=== PATIENT | female | born 1990 | race Caucasian/White ===

== ENCOUNTER 2017-12-05 22:42 | Inpatient (IN) ==
[2017-12-05] MEDS ORDERED: *HR* OxyCODONE/APAP 10/325 TABLET PO ONE (23:29)
[2017-12-05] MEDS ORDERED: diazePAM 10 MG TABLET PO ONE (23:29)
--- NOTE | 2017-12-05 23:30 | Emergency Department Note ---
Disposition Clinical Impression: Abscess of skin or subcutaneous tissue Qualifiers: Site of cutaneous abscess: trunk Site of cutaneous abscess of trunk: back Qualified Code(s): L02.212 - Cutaneous abscess of back [any part, except buttock ] Cellulitis Qualifiers: Site of cellulitis: trunk Site of cellulitis of trunk: back Qualified Code(s): L03.312 - Cellulitis of back [any part except buttock] Disposition: Admitted As Inpatient Condition: Good Time of Disposition: 04:52 General Adult HPI - General Chief complaint: ED Skin/Abscess/Foreign Body Stated complaint: Fever, "Huge knot on my back, hurts like hell" Time Seen by Provider: 12/05/17 23:10 Source: patient, family Limitations: no limitations Nursing Notes Reviewed: Yes Vital Signs Reviewed: Yes - History of Present Illness HPI Narrative: 5 day history of abscess to the upper back. Does have a history of abscesses. States that it was draining a purulent discharge earlier. He does complain of pain to the area. Denies any trauma to this area. Pain Scale: 6 - Related Data Previous Rx's Medication Instructions Recorded Amoxicillin 875 mg PO BID #20 tablet 11/01/17 Ibuprofen [Motrin] 600 mg PO Q6HR PRN #20 tab 11/01/17 Michele/Poly/HC *EAR* SOLN 4 drop RIGHT EAR QID #1 solution 11/01/17 [Cortisporin *EAR* SOLN] Allergies Allergy/AdvReac Type Severity Reaction Status Date / Time No Known Allergies Allergy Verified 11/01/17 15:45 All systems ED: reviewed and negative except as stated. Constitutional: Reports: chills. Denies: fever ENT ED: Denies: congestion Cardiovascular: Denies: chest pain Respiratory: Denies: cough, dyspnea Gastrointestinal: Denies: abdominal pain, nausea, vomiting, diarrhea Integumentary: Reports: lesions (Large abscess to upper back). 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 - Social History Smoking Status: Current every day smoker Smokeless Tobacco Status: No Alcohol use: Reports: none Drug use: Reports: none Physical Exam - General Limitations: no limitations General appearance: alert, in no apparent distress - Head Head exam: atraumatic, normocephalic, normal inspection - Eye Eye exam: Present: normal appearance, PERRL, EOMI - ENT ENT exam: normal exam, normal oropharynx, mucous membranes moist - Neck Neck exam: Present: normal inspection, full ROM, trachea midline - Chest Chest inspection: Present: normal inspection, symmetric chest wall rise - Extremities Exam Extremities exam: Present: normal inspection, full ROM. Absent: tenderness, pedal edema - Back Exam Back exam: Present: other (Large abscess to upper back to the left.) - Neurological Exam Neurological exam: Present: alert, oriented X3 - Psychiatric Psychiatric exam: Present: normal affect, normal mood - Skin Skin exam: Present: warm, dry, intact, normal color. Absent: rash, cyanosis Course Course Narrative: Well-appearing female patient presenting to the emergency department currently complaining of a large knot to her neck area. She has a erythematous raised region to the posterior aspect of her back. She states that she noticed this on Sunday. She does have a history of abscesses. States she has been admitted here and was septic for an abscess on her face previously. She is tachycardic on arrival. The area does appear to be cellulitic around the abscess. Patient is not febrile. She denies any shortness of breath or chest pain. We will get a basic lab workup on patient and I&D this area. She does meet SIRS criteria. We have provided her with 2 L of fluid. Her heart rate was still in the 120s after her second liter. We did place her on Vanco and Zosyn for her skin infection. - Reevaluation(s) Reevaluation #1: The area was I&D'd. She tolerated this well. A large amount of purulent discharge was found and drained. Ultrasound at bedside was done after the abscess was drained and show no fluid pockets. We will start her on begin Zosyn at this time. We will admit patient to the hospital for SIRS criteria as well as a skin infection. The patient is requesting to be admitted as well as she had a by experience with being discharged last time and having to come back being septic. CT of patient's back to the abscess area showed no extra fluid pockets. There is no tracking of the abscess. Time: 01:22 - Consultations Consultation #1: Dr Hernandez accepted Pt in stable condition. Time: 02:31 Vital Signs Temperature 98.0 F 12/05/17 22:45 Pulse Rate 135 12/05/17 22:45 Respiratory Rate 18 12/05/17 22:45 Blood Pressure 142/103 12/05/17 22:45 O2 Sat by Pulse Oximetry 98 12/05/17 22:45 Temperature 99 F 12/06/17 02:38 Pulse Rate 111 12/06/17 02:38 Respiratory Rate 12 12/06/17 02:38 Blood Pressure 121/84 12/06/17 02:38 O2 Sat by Pulse Oximetry 99 12/06/17 02:38 Oxygen Delivery Oxygen Delivery Room Air Medical Decision Making - Medical Records Medical records reviewed: Yes I reviewed the patient's medical records. - Lab Data Lab results reviewed: Yes I reviewed the patient's lab results. Result diagrams: 12/06/17 00:12 12/06/17 00:12 Lab Results 12/05/17 12/06/17 12/06/17 Range/Units 23:44 00:12 00:12 WBC 16.5 H (4.3-11.1) K/mcL RBC 4.94 (3.82-4.97) M/mcL Hgb 14.8 (11.5-15.4) g/dL Hct 43.2 (35.3-44.9) % MCV 87.4 (83.0-100.0) fL MCH 30.0 (28.0-33.3) pg MCHC 34.3 (31.6-35.5) g/dL RDW 13.0 (11.5-14.5) % Plt Count 344 (140-400) K/mcL MPV 9.1 L (9.4-12.4) fL Immature Gran % 0.3 (0-4) % Seg Neutrophils % 76.0 % Lymphocytes % 17.2 % Monocytes % 5.5 % Eosinophils % 0.8 % Basophils % 0.2 % Neutrophils # 12.5 H (1.6-8.9) K/mcL Lymphocytes # 2.8 (0.6-4.6) K/mcL Monocytes # 0.9 (0.0-1.3) K/mcL Eosinophils # 0.1 (0.0-0.6) K/mcL Basophils # 0.0 (0.0-0.2) K/mcL Sodium 134 L (136-145) mEq/L Potassium 3.7 (3.5-5.1) mEq/L Chloride 100 (98-107) mEq/L Carbon Dioxide 22 L (23-29) mEq/L BUN 8 (6-20) mg/dL Creatinine 0.54 L (0.60-1.20) mg/dL Est GFR ( Amer) > 60 (> 60) Est GFR (Non-Af Amer) > 60 (> 60) BUN/Creatinine Ratio 15 (6-26) Glucose 238 H (70-105) mg/dL POC Glucose 240 H (70-99) mg/dL Calculated Osmolality 284 (280-300) Calcium 10.4 H (8.6-10.3) mg/dL Total Bilirubin 0.9 (0.3-1.0) mg/dL AST 22 (13-39) Units/L ALT 21 (7-52) Units/L Alkaline Phosphatase 58 (34-104) Units/L Serum Total Protein 8.0 (6.4-8.9) g/dL Albumin 4.5 (3.5-5.7) g/dL Globulin 3.5 (2.4-3.5) g/dL Albumin/Globulin Ratio 1.3 (1.1-2.2) - Radiology Data Radiology results reviewed: Yes I reviewed the patient's radiology results. Chest CT 12/06/17 01:21 IMPRESSION: There is a localized inflammatory process involving the subcutaneous fat at the posterior base of the left neck consistent with cellulitis and developing phlegmon. There is no drainable fluid collection/ abscess at this time. There is a small overlying skin defect suggesting prior drainage or attempted drainage. D/ / Shon Colindres MD / Shon Colindres MD Interpreting Provider: Shon Colindres MD Attestation Statement - Attestation Attestation: I examined this patient and my medical decision-making was reviewed with the Resident Physician. I agree with the documented findings, disposition and treatment plan as described except to the extent set forth below. Patient has history of diabetes, previously uncontrolled skin infections now with significant posterior thoracic abscess which was drained at bedside with subsequent wound cultures and blood cultures sent. Patient does meet SIRS criteria with leukocytosis as well as tachycardia. Her tachycardia was responsive to IV fluids. Given her elevated blood glucose concurrently with concern for infection as well as identification of sores being abscess in her back I would proceed with admission with broad-spectrum antibiotic coverage pending culture declaration as well as improvement of clinical signs.
[2017-12-05] MEDS: 0.9 % Sodium Chloride 1,000 ML IVC SCH (23:42)
[2017-12-06] MEDS ORDERED: Lidocaine/EPI 1:100k 1% 20 ML VIAL INFILT ONE (00:03)
[2017-12-06 00:21] LABS: Basophils % 0.2 %; Eosinophils # 0.1 K/mcL (0.0-0.6); Eosinophils % 0.8 %; Hematocrit 43.2 % (35.3-44.9); Hemoglobin 14.8 g/dL (11.5-15.4); Immature Granulocytes % 0.3 % (0-4); Lymphocytes # 2.8 K/mcL (0.6-4.6); Lymphocytes % 17.2 %; Mean Corpuscular HGB Conc 34.3 g/dL (31.6-35.5); Mean Corpuscular Volume 87.4 fL (83.0-100.0); Mean Platelet Volume 9.1 fL (9.4-12.4); Monocytes # 0.9 K/mcL (0.0-1.3); Monocytes % 5.5 %; Neutrophils # 12.5 K/mcL (1.6-8.9); Platelet Count 344 K/mcL (140-400); Red Blood Count 4.94 M/mcL (3.82-4.97)
[2017-12-06 00:44] LABS: Alanine Aminotransferase 21 Units/L (7-52); Albumin 4.5 g/dL (3.5-5.7); Albumin/Globulin Ratio 1.3 (1.1-2.2); Alkaline Phosphatase 58 Units/L (34-104); Aspartate Amino Transferase 22 Units/L (13-39); BUN/Creatinine Ratio 15 (6-26); Bilirubin,Total 0.9 mg/dL (0.3-1.0); Blood Urea Nitrogen 8 mg/dL (6-20); Calcium 10.4 mg/dL (8.6-10.3); Carbon Dioxide 22 mEq/L (23-29); Chloride 100 mEq/L (98-107); Globulin 3.5 g/dL (2.4-3.5); Glucose 238 mg/dL (70-105); Osmolality,Calculated 284 (280-300); Potassium 3.7 mEq/L (3.5-5.1); Sodium 134 mEq/L (136-145); eGFR For African Americans > 60 (> 60); eGFR For Non-African Americans > 60 (> 60)
[2017-12-06] MEDS ORDERED: Isovue-370 500 ML INFUS..BTL IV ONE (01:21)
[2017-12-06] MEDS ORDERED: Piperacillin/Tazobactam 3.375 GM in 0.9 % Sodium Chloride Mini Bag 100 ML IVPB ONE (02:17)
[2017-12-06] MEDS: 0.9 % Sodium Chloride 1,000 ML IVC SCH ×4 (02:28→17:57)
[2017-12-06] MEDS ORDERED: *HR* OxyCODONE Immed Rel 5 MG TABLET PO PRN (03:57)
[2017-12-06] MEDS ORDERED: Naloxone 0.4 MG/ML INJ IVP PRN (03:57)
[2017-12-06] MEDS ORDERED: Acetaminophen 325 MG TABLET PO PRN (03:57)
[2017-12-06] MEDS ORDERED: Ringers Solution, Lactated 1,000 ML IVC SCH (04:00)
[2017-12-06] MEDS ORDERED: *HR* Dextrose 50 % in Water (Syg) 50 ML SYRINGE IVP PRN (04:00)
[2017-12-06] MEDS ORDERED: D5% in Water 1,000 ML IVC PRN (04:00)
[2017-12-06] MEDS ORDERED: Dextrose Gel 15 GM/37.5 ML TUBE PO PRN ×2 (04:00)
[2017-12-06] MEDS ORDERED: Vancomycin 1,750 MG in 0.9 % Sodium Chloride 250 ML IVPB SCH (04:00)
--- NOTE | 2017-12-06 04:03 | Internal Med History&Physical ---
Date of Encounter: 12/06/17 Time of Encounter: 04:03 Internal Medicine - H&P: HPI Chief complaint: Fever, painful lump on back of neck Admitted From: Emergency Dept Plans for Post Hospital Care: Home History of present illness: Ms. Flynn is a 27 year old female with h/o- DM, who presents with c/o- painful swelling on the back of her neck. SHe reports being in her usual state of health until about 5 days ago, when she noticed a small pimple on the back of her neck, which gradually increased in size to golf ball and soft ball size, associated with severe throbbing pain, subjective fevers and chills. She denies nausea, vomiting, abdominal pain, diarrhea, dyspnea. She report prior h/o- abscess and skin infections and MRSA sepsis and bacteremia. Past Med Surg Social Fam HX - Past Medical History Source: patient Medical history: diabetes Psychiatric history: anxiety - Past Surgical History Surgical History: , other (adenoidectomy/tonsillectomy) - Social History Smoking Status: Current every day smoker Packs per day: 0.5 Smokeless Tobacco Status: No Alcohol use: none Drug use: none Occupational status: unemployed Current living situation: Home, With Family Activity Level: Independent ambulation Recent Out of Country Travel Within the Last 8 Weeks: No Exposure or Possible Exposure to Illness During Travel: No - Family History Father Living Status: Still Living Hx Family Cancer: Yes Hx Family Endocrine Disorder: Yes (diabetes) Internal Medicine - H&P: Meds Amoxicillin 875 mg PO BID #20 tablet 11/01/17 [Rx] Ibuprofen [Motrin] 600 mg PO Q6HR PRN #20 tab 11/01/17 [Rx] Michele/Poly/HC *EAR* SOLN [Cortisporin *EAR* SOLN] 4 drop RIGHT EAR QID #1 solution 11/01/17 [Rx] 3 Allergy/AdvReac Type Severity Reaction Status Date / Time No Known Allergies Allergy Verified 11/01/17 15:45 All Systems PM: A 10-system review of systems was performed and is negative for pertinent findings except as documented above in the HPI. - Constitutional Constitutional: chills, fever(s) - EENT Eyes: no change in vision, no discharge, no pain, no photophobia Ears: no ear discharge, no ear pain, no tinnitus Nose, mouth and throat: no dysphagia, no nasal discharge, no neck pain, no sore throat - Cardiovascular Cardiovascular ROS IM: no chest pain, no diaphoresis, no dyspnea, no lightheadedness, no palpitations, no syncope - Respiratory Respiratory: no cough, no dyspnea, no wheezing, no excessive phlegm production - Gastrointestinal Gastrointestinal: no abdominal pain, no diarrhea, no hematemesis, no hematochezia, no melena, no nausea, no vomiting - Genitourinary Genitourinary: no change in urinary stream, no dysuria, no flank pain, no hematuria - Musculoskeletal Musculoskeletal ROS IM: no numbness, no tingling - Integumentary Integumentary IM: as per HPI, erythema, new lesions - Neurological Neurological ROS: no confusion, no convulsions, no focal weakness, no numbness, no tingling, no tremor(s) - Hematologic/Lymphatic Hematologic/Lymphatic: no easy bruising - Constitutional Vitals: Temp Pulse Resp BP Pulse Ox 99 F 111 12 121/84 99 12/06/17 02:38 12/06/17 02:38 12/06/17 02:38 12/06/17 02:38 12/06/17 02:38 General appearance: Present: A&O X 3, morbidly obese, answers questions appropriately - Neck Neck exam general surgery: Present: supple, trachea midline. Absent: lymphadenopathy Additional comments: left posterior neck s/p I&D, with dry dressing intact - Respiratory Respiratory exam: Present: CTAB. Absent: accessory muscle use, rales, rhonchi, wheezes - Cardiovascular Cardiovascular exam: Present: RRR, +S1, +S2, tachycardia. Absent: diastolic murmur, gallop, rubs, systolic murmur - GI/Abdominal GI/Abdominal exam: Present: normal bowel sounds, soft (obese), no peritoneal signs. Absent: distended, tenderness - Extremities Exam Extremities exam: Present: full ROM, warm, radial pulses palpable and symmetrical. Absent: calf tenderness, cyanotic, pedal edema - Neurological Exam Neurological exam: Present: CN II-XII intact, oriented X3, no focal deficits. Absent: pronater drift, facial droop, speech deficit - Skin Skin exam: Present: dry, intact Internal Med - H&P Results - Labs CBC & Chem 7: 12/06/17 00:12 12/06/17 00:12 - Assessment and plan (1) Abscess Current Visit: Yes Status: Acute Assessment and plan: CT chest shows phlegmon in left posterior subcutaneous tissues of neck; underwent incision and drainage in the ER, cultures were not sent. Continue IV Vancomycin and Zosyn and f/up blood cultures; local wound care with daily dressing changes and iodoform packing; she may need HHS at discharge; to be discharged on MRSA oral agents due to h/o- MRSA bacteremia in the past. Pain control with PRN Oxycodone and Tramadol. (2) Diabetes mellitus Current Visit: Yes Status: Chronic Assessment and plan: patient stopped taking Metformin for several months, states she is going to get back with her PCP; blood sugars noted to be elevated; check HbA1C. Start Accucheck blood glucose monitoring with sliding scale insulin; diabetic diet; Qualifiers: Diabetes mellitus type: type 2 Diabetes mellitus half-way insulin use: without half-way use Diabetes mellitus complication status: with hyperglycemia Qualified Code(s): E11.65 - Type 2 diabetes mellitus with hyperglycemia (3) Morbid obesity with BMI of 40.0-44.9, adult Current Visit: Yes Status: Chronic (4) Sepsis Current Visit: Yes Status: Acute Assessment and plan: patient presented with leukocytosis and tachycardia, with cellulitis and abscess ; continue antibiotics and monitor vitals closely. Lactic acid normal. Telemetry monitoring. Qualifiers: Sepsis type: sepsis due to unspecified organism Qualified Code(s): A41.9 - Sepsis, unspecified organism (5) Tobacco abuse Current Visit: Yes Status: Chronic Assessment and plan: declines Nicotine patch. - Time Spent With Patient Total time spent is greater than 50% in coordination of care (as documented) at patient's floor/unit and/or counseling patient:
[2017-12-06] MEDS: *HR* Enoxaparin 40 MG/0.4 ML SYRINGE SQ SCH (05:37)
[2017-12-06 06:45] LABS: BUN/Creatinine Ratio 16 (6-26); Blood Urea Nitrogen 7 mg/dL (6-20); Calcium 9.1 mg/dL (8.6-10.3); Carbon Dioxide 18 mEq/L (23-29); Chloride 107 mEq/L (98-107); Glucose 184 mg/dL (70-105); Osmolality,Calculated 293 (280-300); Sodium 140 mEq/L (136-145); eGFR For African Americans > 60 (> 60); eGFR For Non-African Americans > 60 (> 60)
[2017-12-06 07:01] LABS: Basophils # 0.1 K/mcL (0.0-0.2); Basophils % 0.3 %; Eosinophils # 0.2 K/mcL (0.0-0.6); Eosinophils % 0.9 %; Hematocrit 37.2 % (35.3-44.9); Hemoglobin 12.7 g/dL (11.5-15.4); Immature Granulocytes % 0.3 % (0-4); Lymphocytes # 3.8 K/mcL (0.6-4.6); Lymphocytes % 20.8 %; Mean Corpuscular HGB Conc 34.1 g/dL (31.6-35.5); Mean Corpuscular Hemoglobin 29.9 pg (28.0-33.3); Mean Corpuscular Volume 87.5 fL (83.0-100.0); Mean Platelet Volume 9.3 fL (9.4-12.4); Monocytes # 1.1 K/mcL (0.0-1.3); Monocytes % 6.2 %; Neutrophils # 13.2 K/mcL (1.6-8.9); Platelet Count 305 K/mcL (140-400); Red Blood Count 4.25 M/mcL (3.82-4.97); Red Cell Distribution Width 13.1 % (11.5-14.5); Segmented Neutrophils % 71.5 %
[2017-12-06] MEDS: traMADol 50 MG TABLET PO PRN ×2 (08:48→16:54)
[2017-12-06] MEDS: Insulin LISPRO 300 UNITS/3 ML VIAL SQ SCH ×3 (08:55→17:56)
[2017-12-06 09:03] LABS: Estimated Average Glucose 235 mg/dl; Hemoglobin A1C 9.8 %
[2017-12-06] MEDS: Piperacillin/Tazobactam 3.375 GM in 0.9 % Sodium Chloride Mini Bag 100 ML IVPB SCH ×2 (12:01→17:55)
--- NOTE | 2017-12-06 17:17 | Internal Med Progress Note ---
Date of Encounter: 12/06/17 Time of Encounter: 12:30 - Assessment and plan (1) Abscess Current Visit: Yes Status: Acute Assessment and plan: CT chest shows phlegmon in left posterior subcutaneous tissues of neck; underwent incision and drainage in the ER, cultures were not sent initially sent for wound cx now she did have MRSA in the past Continue IV Vancomycin and Zosyn will f/u on blood cultures Cont local wound care with daily dressing changes and iodoform packing Consulted surgery Dr. Hughes for further eval..since pt still has significant induration. (2) Sepsis Current Visit: Yes Status: Acute Assessment and plan: She did meet sepsis criteria with leukocytosis and tachycardia and source of inf as cellulitis and abscess Improving d/c tele cont IV hydration cont empirical abx Qualifiers: Sepsis type: sepsis due to unspecified organism Qualified Code(s): A41.9 - Sepsis, unspecified organism (3) Morbid obesity with BMI of 40.0-44.9, adult Current Visit: Yes Status: Chronic (4) Tobacco abuse Current Visit: Yes Status: Chronic Assessment and plan: declines Nicotine patch. (5) Diabetes mellitus Current Visit: Yes Status: Chronic Qualifiers: Diabetes mellitus type: type 2 Diabetes mellitus nursing home insulin use: without intermediate project manager use Diabetes mellitus complication status: with hyperglycemia Qualified Code(s): E11.65 - Type 2 diabetes mellitus with hyperglycemia - Time Spent With Patient Total time spent is greater than 50% in coordination of care (as documented) at patient's floor/unit and/or counseling patient: - Subjective Interval history: Ms. Flnyn is a 27 year old female with h/o- DM, MRSA neck abscess in the past now she presented to ER with c/o- painful swelling on the back of her neck from last 5 days. She noticed a small pimple on the back of her neck, which gradually increased in size to golf ball and soft ball size, associated with severe throbbing pain, subjective fevers and chills. She had an I & D done in the ER and packed the wound. Pt states she feels little better now. Denied any CP / SOB. No more fever / chills. Still has moderate pain in Left upper back - Constitutional Vitals: Temp Pulse Resp BP Pulse Ox 97.9 F 92 16 110/74 98 12/06/17 16:09 12/06/17 16:09 12/06/17 16:09 12/06/17 16:09 12/06/17 16:09 General appearance: Present: A&O X 3, morbidly obese, answers questions appropriately - Head Head exam: Present: atraumatic, normal inspection - Neck Neck exam general surgery: Present: supple Additional comments: 4 x 4 cm size induration noticed over Left upper back just above the scapular region. Moderate erythema and swelling noticed - Respiratory Respiratory exam: Present: decreased breath sounds. Absent: rales, respiratory distress, rhonchi, wheezes - Cardiovascular Cardiovascular exam: Present: +S1, +S2, tachycardia. Absent: systolic murmur - GI/Abdominal GI/Abdominal exam: Present: normal bowel sounds, soft. Absent: rebound, rigid, tenderness - Extremities Exam Extremities exam: Absent: calf tenderness, pedal edema, tenderness - Back Exam Back exam: Absent: CVA tenderness (L), CVA tenderness (R) - Psychiatric Psychiatric exam: Present: normal affect, normal mood Internal Medicine: Result - Labs CBC & Chem 7: 12/06/17 05:06 12/06/17 00:12 Labs: Short CBC 12/06/17 Range/Units 05:06 WBC 18.5 H (4.3-11.1) K/mcL Hgb 12.7 D (11.5-15.4) g/dL Hct 37.2 (35.3-44.9) % Plt Count 305 (140-400) K/mcL Neutrophils # 13.2 H (1.6-8.9) K/mcL Consult Discharge Plan - Plan Referrals: Charli Mccarthy MD [Primary Care Provider] -
--- NOTE | 2017-12-06 18:28 | General Surgery Consult Note ---
Date of Encounter: 12/06/17 Time of Encounter: 18:13 History of Present Illness Consult date: 12/06/17 Reason for consult: other (Abscess left posterior shoulder/scapular area) Requesting physician: Javed Candelario History of present illness: 27-year-old morbidly obese female referred for further evaluation and treatment of an abscess cephalad left scapular/posterior left shoulder area. The patient apparently presented to [facility] ED late last evening/early this morning with a 5 day history of aggressive painful swelling left posterior shoulder. I&D using local anesthetic was attempted but was poorly tolerated by the patient. The subcutaneous swelling and tenderness process. The induration measures 7-8 cm in diameter. The patient will require incision and drainage under anesthesia Past medical and surgical history: Morbid obesity; diabetes; chronic anxiety previous MRSA infection/abscess of the chin; this was apparently addressed by ENT;patient is also status post tonsillectomy/adenoidectomy; 2. Tubal ligation Allergies: Morphine - patient describes severe anxiety and agitation and possible hallucinosis when morphine is administered Medications: Amoxicillin 875 mg by mouth twice a day initiated 11/01/17; ibuprofen 600 mg by mouth every 6 hours when necessary pain; Michele/Poly/HC otic solution, 4 drops in the right ear 4 times a day Social history: G2, P2; patient admits to less than a pack of cigarettes daily for the last 4-5 years; she denies any alcohol or illicit drug use Physical examination: Morbidly obese female sitting at bedside in no acute distress. Patient is 1.68 m tall, 113.8 kg; BMI 40.5 Maximum temperature since admission 99.6; heart rate is high is 125 but currently 92 and regular; respiratory rate 16, blood pressure 110/74. Skin: Warm, no obvious jaundice; multiple cutaneous tattoos evident Lungs: Bilaterally clear Posterior thorax: 8 cm area of tenderness/induration cephalad portion of the left scapula/posterior shoulder. A 1 cm vertical incision is present with packing. The packing was removed. The dressing is wet and soiled with copious serosanguineous fluid. The dressing was removed with nursing instructed to apply dry sterile gauze. Cardiac: Regular rate, no appreciable murmurs Abdomen: Morbidly obese with active bowel sounds. No obvious tenderness. Laboratories: White count currently 18.5 with 13.2% neutrophils; on presentation to the emergency department 16.5; H&H currently 12.7 and 37.2 Electrolytes, BUN/creatinine, creatinine within an acceptable range. CT thorax: Reviewed with [facility] - Evidence of small overlying skin laceration consistent with previous attempted I&D containing high attenuation material consistent with packing with sizable subcutaneous fat stranding and phlegmon medial posterior left shoulder. The findings are consistent with cellulitis and developing phlegmon but no identified drainable fluid collection/ abscess described radiographically. ER note dictations reviewed - incision and drainage yielded a large volume of purulent discharge. The CT was obviously obtained post incision and drainage. Impression: 27-year-old morbidly obese female with persisting pain and subcutaneous swelling. Exploration of this region recommended and discussed in detail. This will entail enlarging the incision and extending the dissection to the musculature of the upper back. Irrigation and debridement is planned as well. This will be completed under anesthesia. Risks include hemorrhage, infection, persistent infection/recurrent abscess. The patient has expressed understanding, surgical consent obtained. Plan: NPO after 12 midnight except medications Surgery tomorrow Past Med Surg Social Fam HX - Past Medical History Medical history: non-contributory Psychiatric history: anxiety - Past Surgical History Surgical History: - Social History Smoking Status: Current every day smoker Packs per day: 0.5 Smokeless Tobacco Status: No Alcohol use: none Drug use: none - Family History Father Living Status: Still Living Hx Family Cancer: Yes Hx Family Endocrine Disorder: Yes (diabetes) Medications and Allergies No Known Home Drugs 12/06/17 [History] 3 Allergy/AdvReac Type Severity Reaction Status Date / Time No Known Allergies Allergy Verified 12/06/17 08:20 Review of Systems All systems PM: The remainder of the systems were reviewed and are negative General Surgery Exam Initial Vital Signs Temp Pulse Resp BP Pulse Ox 98.0 F 135 18 142/103 98 12/05/17 22:45 12/05/17 22:45 12/05/17 22:45 12/05/17 22:45 12/05/17 22:45 Exam Initial Vital Signs Temp Pulse Resp BP Pulse Ox 98.0 F 135 18 142/103 98 12/05/17 22:45 12/05/17 22:45 12/05/17 22:45 12/05/17 22:45 12/05/17 22:45 Results - Labs 12/06/17 05:06 12/06/17 00:12 Abnormal lab results WBC 18.5 K/mcL (4.3-11.1) H 12/06/17 05:06 MPV 9.3 fL (9.4-12.4) L 12/06/17 05:06 Neutrophils # 13.2 K/mcL (1.6-8.9) H 12/06/17 05:06 Sodium 134 mEq/L (136-145) L 12/06/17 00:12 Carbon Dioxide 22 mEq/L (23-29) L 12/06/17 00:12 Creatinine 0.54 mg/dL (0.60-1.20) L 12/06/17 00:12 Glucose 238 mg/dL (70-105) H 12/06/17 00:12 POC Glucose 256 mg/dL (70-99) H 12/06/17 11:15 Hemoglobin A1c 9.8 % (-5.6) H 12/06/17 04:03 Calcium 10.4 mg/dL (8.6-10.3) H 12/06/17 00:12 Diabetes panel 12/06/17 Range/Units 04:03 Hemoglobin A1c 9.8 H ( - 5.6) % All other labs normal. Consult Discharge Plan - Plan Referrals: Charli Mccarthy MD [Primary Care Provider] -
--- NOTE | 2017-12-06 19:15 | Anesthesia Evaluation PreOp ---
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: Denies Any Significant HX Other Medical History: Diabetes Type II, Other (Morbid Obesity 40.5) Anesthesia History: Past Anesthesia (T&A, c/s, chin abcess) : No Test: Negative (12/06/2017) Alcohol Use: none Drug use: none Medications and Allergies No Known Home Drugs 12/06/17 [History] 3 Allergy/AdvReac Type Severity Reaction Status Date / Time No Known Allergies Allergy Verified 12/06/17 08:20 - Meds/Allergy Pre-op Review Medications Reviewed: Yes Allergies Reviewed: Yes Beta Blockers on Current Med List: No Anesthesia Results - Labs 12/06/17 05:06 12/06/17 00:12 - Imaging EKG: report reviewed (SINUS TACHYCARDIA BORDERLINE LEFT AXIS DEVIATION) Anesthesia Exam Vital Signs/O2 Sat, Most Current Temp Pulse Resp BP Pulse Ox 98.1 F 93 16 126/89 99 12/06/17 21:00 12/06/17 21:00 12/06/17 21:00 12/06/17 21:00 12/06/17 21:00 - HEENT Pupil (Motor): Pupils equal, EOMI Mallampati: II Teeth: Normal Oral Opening: Greater than 3 Anesthesia Assess/Plan ASA Score: 3 Modified Surinder Scale for Level of Consciousness: Cooperative, oriented, and tranquil Anesthetic Plan: General Autologous Blood: Yes Monitoring Plan: Standard Monitors Recovery Plan: PACU <Sarah Peterson - Last Filed: 12/07/17 13:56> Date of Encounter: 12/07/17 Anesthesia Results - Labs 12/07/17 06:40 12/06/17 00:12 Laboratory Results Impressions Chest CT 12/06/17 01:21 IMPRESSION: There is a localized inflammatory process involving the subcutaneous fat at the posterior base of the left neck consistent with cellulitis and developing phlegmon. There is no drainable fluid collection/ abscess at this time. There is a small overlying skin defect suggesting prior drainage or attempted drainage. D/ / Shon Colindres MD / Shon Colindres MD Interpreting Provider: Shon Colindres MD Laboratory Tests 12/07/17 12/07/17 06:40 11:30 WBC 8.9 D Hgb 11.9 Hct 35.2 L Plt Count 272 POC Glucose 212 H Anesthesia Exam Height: 5'6" Weight: 250# BMI = 40.5 NPO (# of Hours): MNoc - HEENT Mallampati: III - CONTACT CENTER CONSULTANT LOC: Oriented CONTACT CENTER CONSULTANT Motor: Normal RUE, Normal LUE, Normal RLE, Normal LLE, Normal Face CONTACT CENTER CONSULTANT Sensory: Normal: RUE, LUE, RLE, LLE, Face - Cardiac Rhythm: Regular Murmur: None - Pulmonary Breath Sounds: bilateral Clear Respiratory Effort: Symmetrical Anesthesia Assess/Plan ASA Score: 3 (MO, Smoker, DM) Anes Supervising Prov Stmt: Pt seen/evaluated,R&B Discussed questions answered and consent obtained. - MD Kiran <Jose Alberto Cheema - Last Filed: 12/07/17 16:20> Date of Encounter: 12/07/17 Time of Encounter: 16:15 - Past History Other Medical History: Other Anesthesia History: No Prior Anesthetic Complications, Past Anesthesia Anesthesia Results - Labs 12/07/17 06:40 12/06/17 00:12 Anesthesia Exam Selected Entries 12/07/17 15:54 Temperature 98.1 F Pulse Rate 84 Respiratory Rate 18 Blood Pressure 125/86 O2 Sat by Pulse Oximetry 96 Oxygen Delivery Method Room Air - HEENT Pupil (Motor): EOMI Mallampati: III Teeth: Normal Oral Opening: Greater than 3 - CONTACT CENTER CONSULTANT LOC: Oriented CONTACT CENTER CONSULTANT Motor: Normal RUE, Normal LUE, Normal RLE, Normal LLE, Normal Face CONTACT CENTER CONSULTANT Sensory: Normal: RUE, LUE, RLE, LLE, Face - Cardiac Rhythm: Regular Murmur: None - Pulmonary Breath Sounds: bilateral Clear Respiratory Effort: Symmetrical Anesthesia Assess/Plan ASA Score: 3 Modified Surinder Scale for Level of Consciousness: Cooperative, oriented, and tranquil Anesthetic Plan: General Autologous Blood: No Monitoring Plan: Standard Monitors Recovery Plan: PACU (agrees to [place])
[2017-12-06] MEDS ORDERED: Insulin LISPRO 300 UNITS/3 ML VIAL SQ SCH (21:00)
[2017-12-07] MEDS: Piperacillin/Tazobactam 3.375 GM in 0.9 % Sodium Chloride Mini Bag 100 ML IVPB SCH ×2 (03:06→11:48)
[2017-12-07] MEDS: *HR* Enoxaparin 40 MG/0.4 ML SYRINGE SQ SCH (05:28)
[2017-12-07 07:05] LABS: Basophils % 0.5 %; Eosinophils # 0.3 K/mcL (0.0-0.6); Eosinophils % 3.3 %; Hematocrit 35.2 % (35.3-44.9); Hemoglobin 11.9 g/dL (11.5-15.4); Immature Granulocytes % 0.5 % (0-4); Lymphocytes # 2.5 K/mcL (0.6-4.6); Lymphocytes % 28.5 %; Mean Corpuscular HGB Conc 33.8 g/dL (31.6-35.5); Mean Corpuscular Hemoglobin 29.4 pg (28.0-33.3); Mean Corpuscular Volume 86.9 fL (83.0-100.0); Mean Platelet Volume 9.2 fL (9.4-12.4); Monocytes # 0.6 K/mcL (0.0-1.3); Neutrophils # 5.4 K/mcL (1.6-8.9); Platelet Count 272 K/mcL (140-400); Red Blood Count 4.05 M/mcL (3.82-4.97); Red Cell Distribution Width 12.8 % (11.5-14.5); Segmented Neutrophils % 60.2 %
[2017-12-07] MEDS: Insulin LISPRO 300 UNITS/3 ML VIAL SQ SCH ×3 (09:33→21:38)
[2017-12-07] MEDS: 0.9 % Sodium Chloride 1,000 ML IVC SCH ×2 (11:47→11:49)
[2017-12-07] MEDS ORDERED: *HR* LORazepam 0.5 MG TABLET PO PRN (14:04)
[2017-12-07] MEDS ORDERED: *HR* FentaNYL (PF) 100 MCG/2 ML VIAL ONE ×3 (14:13→17:07)
[2017-12-07] MEDS ORDERED: *HR* Midazolam HCl 2 MG/2 ML VIAL ONE ×2 (14:14→16:27)
[2017-12-07] MEDS ORDERED: Lidocaine -MPF 2% 2 ML VIAL ONE ×2 (14:15→16:27)
[2017-12-07] MEDS ORDERED: *HR* Succinylcholine 200 MG/10 ML VIAL IVP ONE ×2 (14:15→16:29)
[2017-12-07] MEDS ORDERED: *HR* Propofol 200 MG/20 ML VIAL IVP ONE ×2 (14:16→16:27)
--- NOTE | 2017-12-07 16:38 | Internal Med Progress Note ---
Date of Encounter: 12/07/17 Time of Encounter: 11:40 - Assessment and plan (1) Abscess Current Visit: Yes Status: Acute Assessment and plan: CT chest shows phlegmon in left posterior subcutaneous tissues of neck; underwent incision and drainage in the ER Wound cx growing MRSA Cont IV Vancomycin d/c Zosyn Blood cultures no growth so far Cont local wound care with daily dressing changes and iodoform packing Scheduled for I & D, Debridement today by Dr. Hughes (2) Sepsis Current Visit: Yes Status: Acute Assessment and plan: She did meet sepsis criteria with leukocytosis and tachycardia and source of inf as cellulitis and abscess Improving cont IV hydration cont empirical abx Vanc Qualifiers: Sepsis type: sepsis due to unspecified organism Qualified Code(s): A41.9 - Sepsis, unspecified organism (3) Morbid obesity with BMI of 40.0-44.9, adult Current Visit: Yes Status: Chronic (4) Tobacco abuse Current Visit: Yes Status: Chronic Assessment and plan: declines Nicotine patch. (5) Diabetes mellitus Current Visit: Yes Status: Chronic Assessment and plan: patient stopped taking Metformin for several months, states she is going to get back with her PCP; blood sugars noted to be elevated; check HbA1C. Start Accucheck blood glucose monitoring with sliding scale insulin; diabetic diet; Qualifiers: Diabetes mellitus type: type 2 Diabetes mellitus fci insulin use: without shactor use Diabetes mellitus complication status: with hyperglycemia Qualified Code(s): E11.65 - Type 2 diabetes mellitus with hyperglycemia - Time Spent With Patient Total time spent is greater than 50% in coordination of care (as documented) at patient's floor/unit and/or counseling patient: - Subjective Interval history: Ms. Flynn is a 27 year old female with h/o- DM, MRSA neck abscess in the past now she presented to ER with c/o- painful swelling on the back of her neck from last 5 days. She noticed a small pimple on the back of her neck, which gradually increased in size to golf ball and soft ball size, associated with severe throbbing pain, subjective fevers and chills. She had an I & D done in the ER and packed the wound. Pt states she feels little better now. Denied any CP / SOB. No more fever / chills. Still has moderate pain in Left upper back..No events over night. Scheduled for I & D and wound debridement today. - Constitutional Vitals: Temp Pulse Resp BP Pulse Ox 98.1 F 84 18 125/86 96 12/07/17 15:54 12/07/17 15:54 12/07/17 15:54 12/07/17 15:54 12/07/17 15:54 General appearance: Present: A&O X 3, morbidly obese, answers questions appropriately - Head Head exam: Present: atraumatic, normal inspection - Neck Neck exam general surgery: Present: supple Additional comments: 4 x 4 cm size induration noticed over Left upper back just above the scapular region. Moderate erythema and swelling noticed. Purulent discharge noticed through the incision. - Respiratory Respiratory exam: Present: decreased breath sounds. Absent: rales, respiratory distress, rhonchi, wheezes - Cardiovascular Cardiovascular exam: Present: RRR, +S1, +S2. Absent: tachycardia - GI/Abdominal GI/Abdominal exam: Present: normal bowel sounds, soft. Absent: rigid, tenderness - Extremities Exam Extremities exam: Absent: calf tenderness, pedal edema, tenderness - Back Exam Back exam: Absent: CVA tenderness (L), CVA tenderness (R) - Neurological Exam Neurological exam: Present: alert, oriented X3 Internal Medicine: Result - Labs CBC & Chem 7: 12/07/17 06:40 12/06/17 00:12 Labs: Short CBC 12/07/17 Range/Units 06:40 WBC 8.9 D (4.3-11.1) K/mcL Hgb 11.9 (11.5-15.4) g/dL Hct 35.2 L (35.3-44.9) % Plt Count 272 (140-400) K/mcL Neutrophils # 5.4 (1.6-8.9) K/mcL Consult Discharge Plan - Plan Referrals: Charli Mccarthy MD [Primary Care Provider] -
[2017-12-07] MEDS ORDERED: Vancomycin 1,000 MG VIAL ONE (17:02)
[2017-12-07] MEDS ORDERED: Ondansetron 4 MG/2 ML VIAL ONE (17:19)
[2017-12-07] MEDS ORDERED: Ketorolac 30 MG/ML VIAL ONE (17:19)
[2017-12-07] MEDS ORDERED: *HR* Promethazine 25 MG/ML VIAL IVP PRN (17:28)
[2017-12-07] MEDS ORDERED: MORPHINE SUL Oral CONC 10 MG/0.5 ML ORAL.SYG SL PRN (17:28)
[2017-12-07] MEDS ORDERED: *HR* OxyCODONE Immed Rel 5 MG TABLET PO PRN ×2 (17:28→18:05)
--- NOTE | 2017-12-07 17:38 | Operative Note ---
Date of procedure: 12/07/17 Pre-op diagnosis: abscess left posterior shoulder Post-op diagnosis: same Procedure: Incision, drainage, and debridement abscess posterior left shoulder Complications: none apparent [facility] Sur[facility]: Octaviano Hughes Was there an physician assistant certified present: No Estimated blood loss (cc): 20 IV fluids (cc): 500 Specimen: aerobic and anaerobic cultures Condition: stable Disposition: PACU Procedure in Detail: The patient was brought to the operating room where she was placed supine on the procedure table. The patient was appropriately identified as to person, procedure, and laterality. The accuracy this information was confirmed by the patient and procedure team. The patient was intubated and anesthetized by [facility]. Once the airway was secured, the patient was placed in the right lateral decubitus position. The posterior left shoulder and neck were prepped and draped in usual sterile fashion. Pre-existing 1.5 cm incision corresponding to a previous I&D completed in the emergency department was present. This incision was extended to 3-1/2 cm in length and extended to the trapezius musculature. Aerobic and anaerobic cultures were obtained. The wound was then irrigated with 3 L sterile saline and a pulsatile irrigation system (Pulsavac-Plus). Wound was then packed with half-inch iodoform gauze covered by dry sterile gauze and AVD. The dressings were secured with tape. The patient was taken to recovery in stable condition. Needle, sponge, and instrument counts were correct at the close of the case.
[2017-12-07] MEDS ORDERED: Acetaminophen 325 MG TABLET PO PRN (18:05)
[2017-12-07] MEDS ORDERED: traMADol 50 MG TABLET PO PRN (18:05)
[2017-12-07] MEDS ORDERED: D5% in Water 1,000 ML IVC PRN (18:05)
[2017-12-07] MEDS ORDERED: Dextrose Gel 15 GM/37.5 ML TUBE PO PRN (18:05)
[2017-12-07] MEDS ORDERED: *HR* Dextrose 50 % in Water (Syg) 50 ML SYRINGE IVP PRN (18:05)
[2017-12-07] MEDS ORDERED: Naloxone 0.4 MG/ML INJ IVP PRN (18:05)
--- NOTE | 2017-12-07 18:18 | Anesthesia Evaluation Post Op ---
Date of Encounter: 12/07/17 Time of Encounter: 18:17 - Vital Signs Vital Signs: Last Vital Signs Temp 98.0 F 12/07/17 18:08 Pulse 93 12/07/17 18:08 Resp 16 12/07/17 18:08 BP 118/77 12/07/17 18:08 Pulse Ox 97 12/07/17 18:08 - Lungs Lungs: Clear Ascult./Percussion - Airway Airway: Non-obstructed - Cardiovascular Regular Rate - Mental Status Mental Status: Alert & Oriented, Answers Appropriately - Pain Pain Scale: 2 - Nausea Vomiting Nausea Vomiting: Not Present - Hydration Hydration: NPO - Discharge PostOp Status: Transfer Patient to floor
[2017-12-07 19:46] LABS: BUN/Creatinine Ratio 15 (6-26); Blood Urea Nitrogen 6 mg/dL (6-20); eGFR For African Americans > 60 (> 60); eGFR For Non-African Americans > 60 (> 60)
[2017-12-08 05:16] LABS: Basophils % 0.4 %; Eosinophils # 0.3 K/mcL (0.0-0.6); Eosinophils % 3.7 %; Hematocrit 34.3 % (35.3-44.9); Hemoglobin 11.5 g/dL (11.5-15.4); Immature Granulocytes % 0.6 % (0-4); Immature Platelets 1.5 % (1.1-6.1); Lymphocytes # 2.2 K/mcL (0.6-4.6); Mean Corpuscular HGB Conc 33.5 g/dL (31.6-35.5); Mean Corpuscular Hemoglobin 29.5 pg (28.0-33.3); Mean Corpuscular Volume 87.9 fL (83.0-100.0); Mean Platelet Volume 8.9 fL (9.4-12.4); Monocytes # 0.6 K/mcL (0.0-1.3); Neutrophils # 5.3 K/mcL (1.6-8.9); Platelet Count 317 K/mcL (140-400); Red Cell Distribution Width 12.8 % (11.5-14.5); Segmented Neutrophils % 62.3 %
[2017-12-08] MEDS ORDERED: Vancomycin 1 EACH in 0.9 % Sodium Chloride 250 ML IVPB SCH (06:00)
[2017-12-08] MEDS: *HR* Enoxaparin 40 MG/0.4 ML SYRINGE SQ SCH (06:15)
[2017-12-08] MEDS: Insulin LISPRO 300 UNITS/3 ML VIAL SQ SCH ×4 (07:33→20:13)
[2017-12-08] MEDS: *HR* LORazepam 0.5 MG TABLET PO PRN (10:45)
--- NOTE | 2017-12-08 12:31 | General Surgery Progress Note ---
Date of Encounter: 12/08/17 Time of Encounter: 12:28 Subjective Narrative: General Surgery - POD #1 patient c/o mild to moderate pain Afeb, HR 95, RR 16; BP 115/76 Wound posterior left shoulder improved with diminished induration. No detected purulent drainage on dressing. Packing removed. Dry sterile gauze dressing applied Impression - abscess, presumably due to MRSA, left medial posterior shoulder wound clean. packing removed and will be discontinued Objective Vital Signs - Last 8 Hours Temp Pulse Resp BP Pulse Ox 12/08/17 11:45 96 12/08/17 11:32 98 F 95 16 115/76 96 12/08/17 08:00 98.1 F 85 17 122/80 97 Intake and Output 12/07/17 12/08/17 12/08/17 23:59 07:59 15:59 Intake Total 250 / 250 240 / 240 0 / 0 Output Total / 20 / 1 0 / 0 Balance 230 / 230 239 / 239 0 / 0 Intake: IV Fluids 250 / 250 Vancocin 1,250 MG In 0.9 % 250 / 250 Sodium Chloride 250 ML @ 166.67 mls/hr IVPB Q12H AMAYA Rx#: [id number] Oral 0 / 0 240 / 240 0 / 0 Output: Urine 0 / 0 / 0 / 0 Estimated Blood Loss Other: Meal gold fish crackers Percent of Meal Consumed 100% # Voids 1 Weight 111.947 kg Blood Glucose* 242 199 203 Patient Weight 12/08/17 23:59 Weight 111.947 kg - Labs 12/08/17 04:52 12/07/17 19:11 Diabetes panel 12/07/17 Range/Units 19:11 BUN 6 (6-20) mg/dL Creatinine 0.40 L (0.60-1.20) mg/dL Pituitary panel 12/07/17 Range/Units 19:11 BUN 6 (6-20) mg/dL Creatinine 0.40 L (0.60-1.20) mg/dL Adrenal panel 12/07/17 Range/Units 19:11 BUN 6 (6-20) mg/dL Creatinine 0.40 L (0.60-1.20) mg/dL Consult Discharge Plan - Plan Referrals: Charli Mccarthy MD [Primary Care Provider] -
--- NOTE | 2017-12-08 13:40 | Internal Med Progress Note ---
Date of Encounter: 12/08/17 Time of Encounter: 10:45 - Assessment and plan (1) Abscess Current Visit: Yes Status: Acute Assessment and plan: CT chest showed phlegmon in left posterior subcutaneous tissues of neck underwent incision and drainage in the ER S/P I & D, wound Debridement by Dr. Hughes on 12/07/17 Wound cx growing MRSA Cont IV Vancomycin Blood cultures no growth so far Cont local wound care with daily dressing changes and iodoform packing (2) Sepsis Current Visit: Yes Status: Acute Assessment and plan: She did meet sepsis criteria with leukocytosis and tachycardia and source of inf as cellulitis and abscess Improving d/c IVF cont empirical abx Vanc Qualifiers: Sepsis type: sepsis due to unspecified organism Qualified Code(s): A41.9 - Sepsis, unspecified organism (3) Morbid obesity with BMI of 40.0-44.9, adult Current Visit: Yes Status: Chronic (4) Tobacco abuse Current Visit: Yes Status: Chronic Assessment and plan: declines Nicotine patch. (5) Diabetes mellitus Current Visit: Yes Status: Chronic Assessment and plan: patient stopped taking Metformin for several months, states she is going to get back with her PCP; blood sugars noted to be elevated; check HbA1C. 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 Flynn is a 27 year old female with h/o- DM, MRSA neck abscess in the past now she presented to ER with c/o- painful swelling on the back of her neck from last 5 days. She noticed a small pimple on the back of her neck, which gradually increased in size to golf ball and soft ball size, associated with severe throbbing pain, subjective fevers and chills. She had an I & D done in the ER and packed the wound. Pt states she feels little better now. Denied any CP / SOB. No more fever / chills. Still has moderate pain in Left upper back..Had I & D and wound debridement done on 12/07/17. - Constitutional Vitals: Temp Pulse Resp BP Pulse Ox 98 F 95 16 115/76 96 12/08/17 11:32 12/08/17 11:32 12/08/17 11:32 12/08/17 11:32 12/08/17 11:45 General appearance: Present: A&O X 3, morbidly obese, answers questions appropriately - Head Head exam: Present: atraumatic, normal inspection - Neck Additional comments: Improving induration and erythema noticed over Left upper back above the scapula region. clean incision with wound packing noticed. No active discharge noticed - Respiratory Respiratory exam: Present: decreased breath sounds. Absent: rales, respiratory distress, rhonchi, wheezes - Cardiovascular Cardiovascular exam: Present: RRR, +S1, +S2. Absent: tachycardia - GI/Abdominal GI/Abdominal exam: Present: soft - Extremities Exam Extremities exam: Absent: calf tenderness, pedal edema, tenderness - Back Exam Back exam: Absent: CVA tenderness (L), CVA tenderness (R) - Psychiatric Psychiatric exam: Present: normal affect, normal mood Internal Medicine: Result - Labs CBC & Chem 7: 12/08/17 04:52 12/07/17 19:11 Labs: Short CBC 12/08/17 Range/Units 04:52 WBC 8.5 (4.3-11.1) K/mcL Hgb 11.5 (11.5-15.4) g/dL Hct 34.3 L (35.3-44.9) % Plt Count 317 (140-400) K/mcL Neutrophils # 5.3 (1.6-8.9) K/mcL BMP 12/07/17 19:11 BUN 6 Creatinine 0.40 L Consult Discharge Plan - Plan Referrals: Charli Mccarthy MD [Primary Care Provider] -
[2017-12-09] MEDS: *HR* Enoxaparin 40 MG/0.4 ML SYRINGE SQ SCH (05:28)
[2017-12-09] MEDS: Insulin LISPRO 300 UNITS/3 ML VIAL SQ SCH ×5 (08:21→20:34)
--- NOTE | 2017-12-09 11:16 | General Surgery Progress Note ---
Date of Encounter: 12/09/17 Time of Encounter: 11:09 Subjective Narrative: General Surgery - POD #2 Patient continues to complain of mild to moderate pain/soreness; especially during dressing change. Wound remains clean with minimal surrounding induration. No detected purulent drainage. The dressing was recently changed by nursing staff - it remains clean, demonstrating little drainage Afebrile, 97.9; pulse 70, respirations 15, blood pressure 109/69. Wound cultures confirm the presence of MRSA. Impression/Plan: MRSA absecess left medial posterior shoulder. Continue Vancomycin IV today. Convert to appropriate oral meds in the next 24 - 48 hours consider ATB therapy for at least 14 days Morbid obesity Diabetes Objective Vital Signs - Last 8 Hours Temp Pulse Resp BP Pulse Ox 12/09/17 08:34 96 12/09/17 07:51 97.9 F 70 15 109/69 96 12/09/17 04:03 97.7 F 71 14 119/75 95 Intake and Output 12/08/17 12/09/17 12/09/17 23:59 07:59 15:59 Intake Total 250 / 250 0 / 0 Output Total 0 / 0 Balance 250 / 250 0 / 0 Intake: IV Fluids 250 / 250 Vancocin 1,250 MG In 0.9 % 250 / 250 Sodium Chloride 250 ML @ 166.67 mls/hr IVPB Q12H AMAYA Rx#: [id number] Oral 0 / 0 Output: Urine 0 / 0 Other: # Voids 1 Weight 112.1 kg Blood Glucose* 179 176 Patient Weight 12/09/17 23:59 Weight 112.1 kg - Labs 12/08/17 04:52 12/07/17 19:11 Consult Discharge Plan - Plan Referrals: Charli Mccarthy MD [Primary Care Provider] -
[2017-12-09] MEDS ORDERED: Aminoglycoside Consult 1 EACH MC ONE (13:50)
--- NOTE | 2017-12-09 15:05 | Internal Med Progress Note ---
Date of Encounter: 12/09/17 Time of Encounter: 15:03 - Assessment and plan (1) Abscess Current Visit: Yes Status: Acute Assessment and plan: CT chest showed phlegmon in left posterior subcutaneous tissues of neck underwent incision and drainage in the ER S/P I & D, wound Debridement by Dr. Hughes on 12/07/17 Wound cx growing MRSA Cont IV Vancomycin..Will switch to PO Bactrim in AM Does need total 2 weeks therapy Blood cultures no growth so far Cont local wound care with daily dressing changes (2) Sepsis Current Visit: Yes Status: Acute Assessment and plan: She did meet sepsis criteria with leukocytosis and tachycardia and source of inf as cellulitis and abscess Improving d/c IVF cont empirical abx Vanc Qualifiers: Sepsis type: sepsis due to unspecified organism Qualified Code(s): A41.9 - Sepsis, unspecified organism (3) Morbid obesity with BMI of 40.0-44.9, adult Current Visit: Yes Status: Chronic (4) Tobacco abuse Current Visit: Yes Status: Chronic Assessment and plan: declines Nicotine patch. (5) Diabetes mellitus Current Visit: Yes Status: Chronic Assessment and plan: patient stopped taking Metformin for several months, states she is going to get back with her PCP; blood sugars noted to be elevated; check HbA1C. 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 Flynn is a 27 year old female with h/o- DM, MRSA neck abscess in the past now she presented to ER with c/o- painful swelling on the back of her neck from last 5 days. She noticed a small pimple on the back of her neck, which gradually increased in size to golf ball and soft ball size, associated with severe throbbing pain, subjective fevers and chills. She had an I & D done in the ER and packed the wound. Pt states she feels little better now. Denied any CP / SOB. No more fever / chills. Still has moderate pain in Left upper back..Had I & D and wound debridement done on 12/07/17. No events over night - Constitutional Vitals: Temp Pulse Resp BP Pulse Ox 98.0 F 85 16 133/91 97 12/09/17 11:57 12/09/17 11:57 12/09/17 11:57 12/09/17 11:57 12/09/17 11:57 General appearance: Present: A&O X 3, morbidly obese, answers questions appropriately - Head Head exam: Present: atraumatic, normal inspection - Neck Additional comments: Improved erythema and induration over left upper back - Respiratory Respiratory exam: Present: decreased breath sounds. Absent: rales, respiratory distress, rhonchi, wheezes - Cardiovascular Cardiovascular exam: Present: +S1, +S2. Absent: tachycardia - GI/Abdominal GI/Abdominal exam: Present: normal bowel sounds, soft. Absent: rebound, rigid, tenderness - Extremities Exam Extremities exam: Absent: calf tenderness, pedal edema, tenderness - Back Exam Back exam: Absent: CVA tenderness (L), CVA tenderness (R) Internal Medicine: Result - Labs CBC & Chem 7: 12/08/17 04:52 12/07/17 19:11 Consult Discharge Plan - Plan Referrals: Charli Mccarthy MD [Primary Care Provider] -
[2017-12-09] MEDS: *HR* LORazepam 0.5 MG TABLET PO PRN (22:36)
[2017-12-10] MEDS: *HR* Enoxaparin 40 MG/0.4 ML SYRINGE SQ SCH (06:02)
[2017-12-10] MEDS: Insulin LISPRO 300 UNITS/3 ML VIAL SQ SCH ×2 (08:08→13:24)
--- NOTE | 2017-12-10 09:46 | Discharge Summary ---
- NOTES TO OUTPATIENT PROVIDER Notes to Outpatient Provider: f/u with surgery Dr. Hughes in one week. Cont antibiotic Bactrim for 10 more days. please f/u at wound care center as scheduled Orders not resulted at time of discharge: Pending orders 12/07/17 17:20 Culture,Anaerobic [RM] Routine Date of Encounter: 12/10/17 Time of Encounter: 09:42 - Discharge Diagnosis (1) Abscess Priority: Primary Status: Acute (2) Sepsis Priority: Primary Status: Acute Qualifiers: Sepsis type: sepsis due to unspecified organism Qualified Code(s): A41.9 - Sepsis, unspecified organism (3) Morbid obesity with BMI of 40.0-44.9, adult Priority: Secondary Status: Chronic (4) Tobacco abuse Priority: Secondary Status: Chronic (5) Diabetes mellitus Priority: Secondary Status: Chronic Qualifiers: Diabetes mellitus type: type 2 Diabetes mellitus intermediate manager insulin use: without intermediate manager use Diabetes mellitus complication status: with hyperglycemia Qualified Code(s): E11.65 - Type 2 diabetes mellitus with hyperglycemia Hospital course: Ms. Flynn is a 27 year old female with h/o- DM, MRSA neck abscess in the past now she presented to ER with c/o- painful swelling on the back of her neck from last 5 days. She noticed a small pimple on the back of her neck, which gradually increased in size to golf ball and soft ball size, associated with severe throbbing pain, subjective fevers and chills. She had an I & D done in the ER and packed the wound. Pt was admitted in the hospital and started her on empirical abx Zosyn and Vancomycin. However her induration was not improved, so consulted surgery Dr. Hughes who did I & D and wound debridement. Now her cellulites and induration improving. Her wound cx did grow MRSA so continued Vancomycin IV till today. Will d/c her home with PO abx Bactrim today. Also arranging for wound care f/u with wound care center .. - Time Spent with Patient Total time spent providing and/or coordinating discharge services: - Discharge Medications Prescriptions: Lactobacillus [Culturelle] 1 each PO BID #30 cap.sprink metFORMIN [Glucophage] 1,000 mg PO BIDWM #60 tablet Sulfamethoxazole/Trimeth DS [Bactrim Ds] 1 each PO BID #20 tablet Tramadol HCl [Ultram] 50 mg PO QID PRN 5 Days #20 tab PRN Reason: Pain Home Medications: Lactobacillus [Culturelle] 1 each PO BID #30 cap.sprink 12/10/17 [Rx] Sulfamethoxazole/Trimeth DS [Bactrim Ds] 1 each PO BID #20 tablet 12/10/17 [Rx] Tramadol HCl [Ultram] 50 mg PO QID PRN 5 Days #20 tab 12/10/17 [Rx] metFORMIN [Glucophage] 1,000 mg PO BIDWM #60 tablet 12/10/17 [Rx] Allergies/Adverse Reactions: 3 Allergy/AdvReac Type Severity Reaction Status Date / Time No Known Allergies Allergy Verified 12/06/17 08:20 Date of admission: 12/06/17 03:57 Primary care physician: Charli Mccarthy MD Consults: 12/06/17 14:13 Consult to Surgery [CONS] Routine Consulting Provider: Surgery Cristóbal Surg - Saul Reason for Consult: Left posterior neck abscess Time Notified: 14:13 Call Completed: Yes - Constitutional Vitals: Temp Pulse Resp BP Pulse Ox 97.7 F 73 13 125/83 97 12/10/17 07:12 12/10/17 07:12 12/10/17 07:12 12/10/17 07:12 12/10/17 07:12 General appearance: Present: A&O X 3, morbidly obese, answers questions appropriately - Head Head exam: Present: atraumatic, normal inspection - Neck Neck exam general surgery: Present: supple Additional comments: 2 cm size incision over Left upper back just above scapula. Improved induration and erythema noticed - Respiratory Respiratory exam: Present: CTAB. Absent: accessory muscle use, rales, rhonchi, wheezes - Cardiovascular Cardiovascular exam: Present: +S1, +S2 - Back Exam Back exam: Absent: CVA tenderness (L), CVA tenderness (R) - Psychiatric Psychiatric exam: Present: normal affect, normal mood - Patient Status Disposition: Home, Self-Care Condition: Good Overall status at discharge: patient is back to baseline - Discharge Instructions Follow Up With: Charli Mccarthy MD [Primary Care Provider] - Octaviaon Hughes MD [Non-Partnered Physician] - - Diet and Activity Diet: diabetic diet
[2017-12-10 11:14] VITALS: BP 129/84
[2017-12-10] MEDS ORDERED: Sulfamethoxazole/Trimeth DS 1 EACH TABLET PO SCH (21:00)
== END 2017-12-10 13:51 | disposition home or self-care (01) | DRG 854 ==
LOC: 2ANU 22:42 → EMEROO 22:42 → 2ANU 12-06 03:10 → SUATTDRO 12-06 03:57
PROVIDERS: ADMIT Internal Medicine; ATTEND Family Medicine